=== PATIENT | female | born 1965 | race Caucasian/White ===

== ENCOUNTER 2018-02-17 13:33 | Emergency (ER) | payer OTHER ==
[~2018-02-17] VITALS: Ht 162.6 cm; Wt 49.9 kg
[2018-02-17] MEDS ORDERED: TOBRADEX EYE DR10 ML OP (14:45)
[2018-02-17] MEDS ORDERED: FLONASE ALLERG9.9 ML NASAL (14:45)
== END 2018-02-17 14:56 | disposition home or self-care (01) ==
LOC: ER 13:33
DX: H57.8 Other specified disorders of eye and adnexa (principal)

== ENCOUNTER 2018-04-14 17:52 | Emergency (ER) | payer OTHER ==
[~2018-04-14] VITALS: Ht 160 cm; Wt 49.9 kg
[~2018-04-14 17:52] MED LIST: FLONASE ALLERG9.9 ML NASAL; TOBRADEX EYE DR10 ML OP
== END 2018-04-14 20:58 | disposition home or self-care (01) ==
LOC: ER 17:52
DX: N94.6 Dysmenorrhea, unspecified (principal); R10.84 Generalized abdominal pain; Z78.0 Asymptomatic menopausal state

== ENCOUNTER 2018-06-15 17:44 | Emergency (ER) | payer OTHER ==
[~2018-06-15] VITALS: Ht 160 cm; Wt 50.8 kg
[2018-06-15] MEDS ORDERED: GILPHEX TR TAB1 EACH (17:55)
== END 2018-06-15 22:36 | disposition home or self-care (01) ==
LOC: ER 17:44
DX: J06.9 Acute upper respiratory infection, unspecified (principal); J32.8 Other chronic sinusitis

== ENCOUNTER 2021-06-18 08:51 | Outpatient (CLI) | payer OTHER ==
[~2021-06-18 08:51] MED LIST changes: +GILPHEX TR TAB1 EACH
== END 2021-06-18 09:08 | disposition home or self-care (01) ==
LOC: TOM 08:51
PROVIDERS: ATTEND Internal Medicine Gastroenterology
DX: K56.50 Intestinal adhesions [bands], unspecified as to partial versus complete obstruction (principal)